=== PATIENT | female | born 2000 | race American Indian/Alaskan Native ===

== ENCOUNTER → 2022-01-29 16:20 | Outpatient (CLI) | payer OTHER, SELFPAY ==
[2022-01-29 17:12] LABS: Appearance Urine UA CLEAR; Bilirubin Urine UA NEGATIVE (NEGATIVE); Color Urine UA YELLOW; Glucose Urine UA NEGATIVE (Negative); Ketones Urine UA NEGATIVE (NEGATIVE); Leukocyte Esterase Urine UA 1+ (NEGATIVE); Nitrite Urine UA NEGATIVE (Negative); Occult Blood Urine UA 2+ (Negative); Protein Urine UA NEGATIVE (Negative); Specific Gravity Urine UA <=1.005 (1.000-1.035); Urobilinogen Urine UA 0.2 E.U./dL (0.2)
[2022-01-29 17:21] LABS: pH Urine UA 6.5 (4.5-8.0)
[2022-01-29 17:39] LABS: Bacteria Urine Few (2-10); Culture Indicated Urine Specimen Cultured; RBC Urine 0-1/HPF (0-5/HPF); Squamous Epithelial Cell Urine 1-5 /HPF (0-5/HPF); Transitional Epi Cells Urine 0-1/HPF (0-5/HPF); WBC Urine 10-30/HPF (0-5/HPF)
== END ==
PROVIDERS: Referring Provider Obstetrics & Gynecology; Visit Provider Obstetrics & Gynecology
DX: Z34.01 Encounter for supervision of normal first pregnancy, first trimester (principal); N39.0 Urinary tract infection, site not specified
CPT/HCPCS: 81003; 81015; 87077; 87086

== ENCOUNTER → 2022-02-11 09:05 | Outpatient (CLI) | payer OTHER, SELFPAY ==
[2022-02-11 13:18] LABS: Urine N gonorrhoeae NOT DETECTED
[2022-02-11 13:49] LABS: Urine Chlamydia NOT DETECTED
== END ==
PROVIDERS: Visit Provider Obstetrics & Gynecology
DX: Z34.01 Encounter for supervision of normal first pregnancy, first trimester (principal); Z3A.12 12 weeks gestation of pregnancy
CPT/HCPCS: 87491; 87591

== ENCOUNTER → 2022-03-12 13:22 | Outpatient (CLI) | payer OTHER, SELFPAY | PROVIDERS: Visit Provider Obstetrics & Gynecology | DX: Z34.02 Encounter for supervision of normal first pregnancy, second trimester (principal); Z3A.17 17 weeks gestation of pregnancy | CPT/HCPCS: 87086 ==

== ENCOUNTER → 2022-03-12 15:14 | Outpatient (CLI) | payer OTHER, SELFPAY ==
[2022-03-12 15:57] LABS: Add Manual Diff / Slide Review NO; Basophils Absolute Auto 0 /uL (0-100); Basophils Percent Auto 0.5 % (0-2); Eosinophils Absolute Auto 500 /uL (0-450); Eosinophils Percent Auto 5.7 % (2-4); Hematocrit 32.8 % (36-46); Hemoglobin 11.4 g/dL (12.0-16.0); Lymphocytes Absolute Auto 2000 /uL (1100-4500); Lymphocytes Percent Auto 22.9 % (25-40); Mean Corpuscular HGB Conc 34.8 % (30-36); Mean Corpuscular Hemoglobin 30.6 PG (26-34); Mean Corpuscular Volume 87.9 fL (80-100); Monocytes Absolute Auto 600 /uL (0-900); Monocytes Percent Auto 6.5 % (3-14); Neutrophils Absolute Auto 5500 /uL (1500-7000); Neutrophils Percent Auto 64.4 % (50-75); Platelet Count 157 X10^3/uL (150-400); Red Blood Cell Count 3.73 X10^6/uL (4.0-5.2); Red Cell Distribution Width 13.6 % (11.6-14.8); White Blood Cell Count 8.6 X10^3/uL (4.5-11.0)
[2022-03-14 10:40] LABS: HIV 1 & 2 Ab/Ag 4th Gen Combo NEGATIVE (NEGATIVE); Hep C Virus Ab w/Reflex Quant NEGATIVE s/c (NEGATIVE); Hepatitis B Surface Antigen NEGATIVE s/c (NEGATIVE); Rubella Antibody IgG 8.4 IU/mL (>15)
[2022-03-14 11:47] LABS: Varicella IgG Antibody 253 index (Immune >165)
[2022-03-16 08:22] LABS: RPR Screen Non Reactive (Non Reactive)
[2022-03-16 23:27] LABS: AFP, Serum 48.2 ng/mL (.); Estriol, Free 1.04 ng/mL (.); Inhibin A, Dimeric 121.35 pg/mL (.); Inhibin A, MoM 0.67 (.); Maternal Ethnicity Other (.); Maternal Weight 119 lbs (.); Number of Fetuses No (.); OSBR Risk 1 IN 10000 (.); Results Report (.); Test Results *Screen Negative* (.); hCG, MoM 0.56 (.); hCG, Serum 21878 mIU/mL (.)
== END ==
PROVIDERS: Obstetrics & Gynecology; Referring Provider Obstetrics & Gynecology; Visit Provider Obstetrics & Gynecology
DX: Z34.01 Encounter for supervision of normal first pregnancy, first trimester (principal); Z34.02 Encounter for supervision of normal first pregnancy, second trimester; Z3A.17 17 weeks gestation of pregnancy
CPT/HCPCS: 36415; 80055; 82105; 82677; 84702; 86336; 86787; 86803; 86850; 86900; 86901; 87086; 87389

== ENCOUNTER → 2022-04-06 07:04 | Outpatient (CLI) | payer OTHER, SELFPAY ==
--- NOTE | 2022-04-06 07:06 | DI.US.S_ITS ---
PROCEDURE: US OB >= 14 WEEKS FETUS INDICATIONS: ANATOMY OUTSIDE/PRIOR DATING DATA: Last menstrual period (LMP): 10/22/2021 LMP-based estimated date of delivery (MARGRET): 07/29/2022. First dating scan (date and location): 01/13/2022 Estimated date of delivery (MARGRET) from first dating scan: 08/22/2022 The calculations are made using the study generated MARGRET of 08/22/2022. TECHNIQUE: Real-time scanning was performed of the fetus, with image documentation and biometric measurements. Endovaginal scanning: Not indicated COMPARISON: [facility], , OB <= 14 WEEKS FETUS, 02/11/2022, 9:26. FINDINGS: General: A single living intrauterine gestation is present. Presentation: Variable Placenta: Placental position is right posterior, without previa. Amniotic fluid index: 19.8 cm, normal range is 5-24 cm. Single deepest vertical pocket is 5.5 cm. heart rate: 152 beats per minute. Maternal cervical canal: 3.1 cm long. Normal lower limit is 2.5 cm. biometrics: Biparietal diameter: 4.8 cm, 20 weeks, 3 days. Head circumference: 17.0 cm, 19 weeks, 4 days. Abdominal circumference: 15.7 cm, 20 weeks, 3 days. Femur length: 3.1 cm, 19 weeks, 5 days. Clinically estimated gestational age: 20 weeks, 2 days Composite gestational age from present scan: 20 weeks, 0 day. Estimated weight and percentile: 330 g, 33%. Anatomic survey: Neuro: Ventricles are non-dilated at less than 10 mm. Cisterna magna is normal at 3-11 mm. Cerebellum is normal in size and morphology. Nuchal skin fold: Normal at less than 6 mm between 14-21 weeks gestational age. Face: Nose and lips, facial profile are normal. Spine: No evidence for spina bifida. Heart: 4-chambered heart is present, with normal ventricular outflow tracts. Diaphragm: Diaphragm is intact. Stomach: Left-sided stomach is present. Kidneys: No hydronephrosis. Normal is less than 5 mm in 2nd trimester, less than 7 mm in 3rd trimester. Cord: 3-vessel cord is seen. Cord insertion is approximately 1.3 cm from placental edge. Bladder: Normal in size. Extremities: All 4 extremities identified. IMPRESSION: 1. Single live intrauterine gestation with fetus I in variable presentation . heart rate is 152 beats per minute. Normal amount of amniotic fluid. Normal growth. Estimated weight is at 33%. 2. Marginal cord insertion as above. Sonographic follow-up is recommended. 3. Rest of the anatomic survey is within normal limits. We strive to produce accurate, complete, and clear reports of imaging services. To assist us in improving patient care, this report was composed using standard report templates and voice recognition software. Therefore, it may contain abnormal punctuation, insertions and/or omissions. Occasional wrong-word or sound-alike substitutions may occur. Though we review the report and make efforts to correct it, we do recommend that the report be read carefully in proper context to recognize any text inaccuracies. Dictated by: Danilo Aguilar M.D. on 04/06/2022 at 13:17 Approved by: Danilo Aguilar M.D. on 04/06/2022 at 13:20
== END ==
PROVIDERS: Referring Provider Obstetrics & Gynecology; Visit Provider Obstetrics & Gynecology
DX: Z34.02 Encounter for supervision of normal first pregnancy, second trimester (principal); Z3A.20 20 weeks gestation of pregnancy
CPT/HCPCS: 76811

== ENCOUNTER → 2022-05-18 14:08 | Outpatient (CLI) | payer OTHER, SELFPAY ==
[2022-05-18 16:55] LABS: Hematocrit 33.8 % (36-46); Hemoglobin 11.6 g/dL (12.0-16.0)
[2022-05-18 17:25] LABS: GTT (PREG) 1 Hour PP 50gm Dose 93 mg/dL (76-139)
== END ==
PROVIDERS: Referring Provider Obstetrics & Gynecology; Visit Provider Obstetrics & Gynecology
DX: Z34.02 Encounter for supervision of normal first pregnancy, second trimester (principal); Z3A.26 26 weeks gestation of pregnancy
CPT/HCPCS: 82950; 85014; 85018

== ENCOUNTER → 2022-07-27 14:24 | Outpatient (CLI) | payer OTHER, MEDICAID, SELFPAY ==
[2022-07-28 14:40] LABS: Strep Grp B PCR NEG for Grp B Strep
== END ==
PROVIDERS: Visit Provider Obstetrics & Gynecology
DX: Z34.03 Encounter for supervision of normal first pregnancy, third trimester (principal); Z3A.36 36 weeks gestation of pregnancy
CPT/HCPCS: 87653

== ENCOUNTER → 2022-07-28 17:10 | Outpatient (CLI) | payer OTHER, MEDICAID, SELFPAY ==
--- NOTE | 2022-07-28 17:11 | DI.US.S_ITS ---
PROCEDURE: US OB FOLLOW UP INDICATIONS: Marginal cord inserted noted previously; please re-evaluate OUTSIDE/PRIOR DATING DATA: Last menstrual period (LMP): 10/22/2021. LMP-based estimated date of delivery (MARGRET): 07/29/2022. First dating scan (date and location): 01/13/2022. Estimated date of delivery (MARGRET) from first dating scan: 08/22/2022. TECHNIQUE: Real-time scanning was performed of the fetus, with image documentation. Endovaginal scanning: Not performed COMPARISON: [facility], OB >= 14 WEEKS FETUS, 04/06/2022, 7:13. FINDINGS: A single living intrauterine gestation is present. Presentation: Cephalic. Placenta: Placental position is posterior, without previa. Amniotic fluid index: 20.4 cm, normal range is 5-24 cm. Single deepest vertical pocket is 5.6 cm. heart rate: 136 beats per minute. Maternal cervical canal: 3.4 cm long. Normal lower limit is 2.5 cm. estimated gestational age: 36 weeks 3 days Central placental cord origin, 3.9 cm from the placental edge. Small unilateral hydrocele and trace contralateral hydrocele. IMPRESSION: 1. Single living intrauterine in cephalic presentation. 2. Central placental cord origin. 3. Small unilateral hydrocele and trace contralateral hydrocele. Dictated by: Orlin Noyola M.D. on 07/30/2022 at 12:26 Approved by: Orlin Noyola M.D. on 07/30/2022 at 12:46
== END ==
PROVIDERS: Referring Provider Obstetrics & Gynecology; Visit Provider Obstetrics & Gynecology
DX: O43.193 Other malformation of placenta, third trimester (principal); Z36.2 Encounter for other antenatal screening follow-up; O99.891 Other specified diseases and conditions complicating pregnancy; N94.89 Other specified conditions associated with female genital organs and menstrual cycle; Z3A.36 36 weeks gestation of pregnancy
CPT/HCPCS: 76816

== ENCOUNTER → 2022-08-11 12:02 | Outpatient (CLI) | payer OTHER, MEDICAID, SELFPAY | PROVIDERS: Visit Provider Obstetrics & Gynecology | DX: Z34.03 Encounter for supervision of normal first pregnancy, third trimester (principal); Z3A.38 38 weeks gestation of pregnancy | CPT/HCPCS: 87086 ==

== ENCOUNTER 2022-08-24 11:18 | Outpatient (CLI) | payer OTHER, MEDICAID, SELFPAY ==
--- NOTE | 2022-08-24 13:05 | P.TNLD_ITS ---
Visit Information Visit Information Date of evaluation: 08/24/22 Primary OB Provider: Ad Luo Reason for Evaluation: Yes non-stress test Comments/Additional reasons for admission: 21 yo at 40+4 weeks EGA presenting for NST/LUISANA due to EGA. Vital Signs Vital Signs: BP: 123/74 P: 79 T: 36.9C PFSH Medical History (Updated 08/17/22 @ 11:08 by Ad Luo MD) H pylori ulcer Inguinal hernia bilateral, non-recurrent Surgical History (Updated 02/10/22 @ 21:17 by Maris Moore) Anesthesia History of inguinal hernia repair, bilateral [place] teeth extracted Family History (Updated 02/10/22 @ 21:19 by Maris Moore) Grandfather Diabetes mellitus Grandmother Diabetes mellitus Father Hypertension Heart disease Grandmother Leukemia Breast cancer Melanoma Mother Melanoma Cancer Social History marital status: unmarried,living together household members: significant other and friend(s) lives independently: Yes 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 ) current occupational exposures/hazards: No special paz needs: No travel history: over 6 months ago seatbelt use: always helmet use: Yes water heater temp set < 120 deg: Yes (will check and adjust as needed ) working smoke detector in home: Yes fire extinguisher in home: Yes carbon monox detector in home: Yes firearms in home: No do you feel safe at home: Yes Smoking Status: Former smoker (Quit vaping 11/2021) second hand exposure: No alcohol intake: former substance use type: does not use during the past year weight has: remained stable well-balanced diet: daily or most days daily servings fruits/ve-4 caffeine: Yes Type(s) of exercise: walking, regular exercise and weight lifting Review of Systems Review of Systems Narrative: Problem-specific ROS positives included in HPI Evaluation Evaluation Baseline heart rate: 140 Variability: Moderate (11-25) monitor accelerations: Present Monitor Decelerations: Absent Category of Tracing: Reactive Comments: Bedside US: LUISANA 10.01 cm Deepest pocket 5.7 cm Diagnosis, Plan/Disposition Final Diagnosis (1) : Status: Acute (2) Rubella non-immune status, antepartum: Status: Acute Plan/Disposition Plan: Admit for cervical ripening 08/31/2022, induction 09/01/2022. Labor precautions, kick counts. OB Disposition: home
== END 2022-08-24 12:44 | disposition home or self-care (01) ==
LOC: LABOR 12:36 → OB 08-26 13:48
PROVIDERS: Referring Provider Obstetrics & Gynecology; Visit Provider Obstetrics & Gynecology
DX: O48.0 Post-term pregnancy (principal); Z3A.40 40 weeks gestation of pregnancy; Z28.39 Other underimmunization status
CPT/HCPCS: 59025; 76815; G0378; G0379

== ENCOUNTER 2022-08-31 19:02 | Inpatient (IN) | payer OTHER, MEDICAID, SELFPAY ==
--- NOTE | 2022-08-31 19:39 | P.HPOB_ITS ---
OB HPI Date/Time Date of admission: 08/31/22 Date Patient Seen: 09/01/22 Time Patient Seen: 07:00 History of Present Condition Chief complaint: IUP, 41+4 wks EGA : 1 Para: 0 Estimated Date of Delivery: 08/20/22 Estimated Gestational Age (weeks): 41+4 Narrative: Edil Talbot is a 21 year old G1 at 41+4 wks EGA admitted for ripening/induction due to post-dates EGA. PNC has been uneventful, dating is firm, and milestones have been appropriate throughout her . GBS is negative. Indications Indication for induction OB: post dates History of Present care: good care Dating criteria: LMP confirmed by 1st trimester US Ultrasounds: normal 1st trimester US and normal mid trimester US Obstetrical complications: none Preadmission Labs Blood type: B (+) positive -: Antibody screen: negative, GBS status: negative, HBsAG: negative, HIV: negative and RPR/VDLR: negative -: Chlamydia screen: not detected and Gonorrhea screen: not detected -: Rubella: not immune and Varicella: immune HCT: 33.8 HCAB: negative PAP: Normal Quad screen: Normal 1 hr GTT: 93 Prior (ies) History: G1 Evaluation Evaluation Baseline heart rate: 130 Variability: Moderate (11-25) monitor accelerations: Present Monitor Decelerations: Absent Contraction Frequency (minutes): 5 Uterine Contraction Intensity: Mild Category of Tracing: Reactive Status: Category l Dilation (cm): 2 Effacement (%): 85 Dilation: 1-2 cm Effacement: >/=80% station: 0 Position of cervix: posterior Consistency: soft Gandara score: 8 [facility] Medical History (Updated 08/17/22 @ 11:08 by Ad Luo MD) H pylori ulcer Inguinal hernia bilateral, non-recurrent Surgical History (Updated 02/10/22 @ 21:17 by Maris Moore) Anesthesia History of inguinal hernia repair, bilateral [place] teeth extracted Family History (Updated 02/10/22 @ 21:19 by Maris Moore) Grandfather Diabetes mellitus Grandmother Diabetes mellitus Father Hypertension Heart disease Grandmother Leukemia Breast cancer Melanoma Mother Melanoma Cancer Social History marital status: unmarried,living together household members: significant other and friend(s) lives independently: Yes housing: condominium (townhouse ) pets and animals: Yes (3 dogs, 1 cat, 2 chinchillas, not managing cat or lea waste) education level: high school 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, 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 ) current occupational exposures/hazards: No special paz needs: No travel history: over 6 months ago seatbelt use: always helmet use: Yes water heater temp set < 120 deg: Yes (will check and adjust as needed ) working smoke detector in home: Yes fire extinguisher in home: Yes carbon monox detector in home: Yes firearms in home: No do you feel safe at home: Yes Smoking Status: Former smoker second hand exposure: No alcohol intake: former substance use type: does not use during the past year weight has: remained stable well-balanced diet: daily or most days daily servings fruits/ve-4 caffeine: Yes Type(s) of exercise: walking, regular exercise and weight lifting Meds Home Medications and Allergies Home Medications Medication Instructions Recorded Confirmed Type prenat.vits,ramon,nsm-zacz-krxet 1 tab PO DAILY 12/24/21 08/31/22 History Allergies Allergy/AdvReac Type Severity Reaction Status Date / Time Egg Derived Allergy Mild ITCHING Verified 08/31/22 23:57 OB Exam Vital signs Blood Pressure: 135/87 Pulse Rate: 77 Temperature: 36.3 F HENMT Head: normocephalic Eyes General: appearance normal, both eyes and all related structures Resp Effort & Inspection: normal respiratory effort and able to speak in complete s entences Auscultation: clear to auscultation bilaterally Cardio Rate: regular rate Rhythm: regular rhythm Heart Sounds: S1 normal, S2 normal and no murmurs Extremities Lower extremity: Yes normal to inspection GI Inspection: normal to inspection Palpation: Yes soft and Yes no hepatosplenomegaly Uterus Location (Fundal Height): 38 Presentation: vertex Estimated Weight (lbs): 8 Objective Labs 09/01/22 02:00 Assessment and Plan Assessment and Plan Assessment and Plan narrative: ASSESSMENT 1. Intrauterine , 41+5 wks EGA 2. GBS negative status PLAN 1. Admit for cervical ripening/induction due to post-dates 2. See admission orders
[2022-08-31] MEDS: miSOPROStoL 100 MCG TABLET 50 MCG PO (20:05)
[2022-09-01 00:06] VITALS: BP 133/73
[2022-09-01] MEDS: miSOPROStoL 100 MCG TABLET 50 MCG PO (02:10)
[2022-09-01 02:33] LABS: Add Manual Diff / Slide Review NO; Basophils Absolute Auto 100 /uL (0-100); Basophils Percent Auto 0.7 % (0-2); Eosinophils Absolute Auto 400 /uL (0-450); Eosinophils Percent Auto 4.1 % (2-4); Hematocrit 33.8 % (36-46); Hemoglobin 11.3 g/dL (12.0-16.0); Lymphocytes Absolute Auto 2100 /uL (1100-4500); Lymphocytes Percent Auto 21.9 % (25-40); Mean Corpuscular HGB Conc 33.4 % (30-36); Mean Corpuscular Hemoglobin 28.8 PG (26-34); Mean Corpuscular Volume 86.1 fL (80-100); Monocytes Absolute Auto 600 /uL (0-900); Monocytes Percent Auto 6.5 % (3-14); Neutrophils Absolute Auto 6300 /uL (1500-7000); Neutrophils Percent Auto 66.8 % (50-75); Platelet Count 120 X10^3/uL (150-400); Red Blood Cell Count 3.93 X10^6/uL (4.0-5.2); Red Cell Distribution Width 13.9 % (11.6-14.8); White Blood Cell Count 9.4 X10^3/uL (4.5-11.0)
[2022-09-01 06:41] VITALS: BP 135/87; PULSE 77; TEMP 2.4; TEMP 36.3
--- NOTE | 2022-09-01 07:46 | PM.OBPNLAB ---
Date/Time Date Patient Seen: 09/01/22 Time Patient Seen: 07:46 Pain Control Pain control: tolerating well Pelvic Exam Dilation (cm): 2 Effacement (%): 85 station: 0 Amniotic membrane status: Intact Contractions Contractions on admission: none Monitor mode: External Contraction pattern: Irregular Contraction phase: Resting Contraction intensity: Mild Status status: Category l Heart Rate Baseline: 130 Monitor Accelerations: Present Monitor Decelerations: Absent Monitor Variability: Moderate Assessment and Plan Assessment: other Plan: begin patient augmentation
[2022-09-01] MEDS: OXYTOCIN PREMIX 30 UNIT/500 ML PLAST..BAG IV (08:38)
[2022-09-01] MEDS: LACTATED RINGERS 1,000 ML 100 ML IV ×2 (08:39→14:34)
[2022-09-01] MEDS: FENT 2MCG/ML BUPIV 0.125% EPI 200 MCG/100 ML PLAST..BAG 7.5 MCG EPIDURAL ×2 (12:09→18:40)
--- NOTE | 2022-09-01 17:32 | PM.OBPNLAB ---
Date/Time Date Patient Seen: 09/01/22 Time Patient Seen: 17:32 Pain Control Pain control: tolerating well and epidural Pelvic Exam Dilation (cm): 7 Effacement (%): 100 station: 0 Amniotic membrane status: Intact Contractions Monitor mode: External Pitocin rate (mU/min): 10 Contraction frequency (min): 2 Contraction duration (min): 1 Contraction pattern: Regular Contraction phase: Resting Contraction intensity: Mild Status status: Category l Heart Rate Baseline: 135 Monitor Accelerations: Present Monitor Decelerations: Early Monitor Variability: Moderate Assessment and Plan Assessment: active labor Plan: continuous present management Comments: Anticipate
--- NOTE | 2022-09-01 19:17 | PM.OBPNLAB ---
Date/Time Date Patient Seen: 09/01/22 Time Patient Seen: 19:17 Pain Control Pain control: tolerating well and epidural Pelvic Exam Dilation (cm): 10 Effacement (%): 100 station: +1 Amniotic membrane status: Ruptured Contractions Contractions on admission: none Monitor mode: External Pitocin rate (mU/min): 10 Contraction frequency (min): 2 Contraction duration (min): 1 Contraction pattern: Regular Contraction phase: Resting Contraction intensity: Mild Status status: Category l Heart Rate Baseline: 135 Monitor Accelerations: Present Monitor Decelerations: Early Monitor Variability: Moderate Assessment and Plan Assessment: induction ongoing Plan: continuous present management Comments: Anticipate
--- NOTE | 2022-09-01 23:00 | P.PCNOB_ITS ---
Events: Other (Post-dates) Labor & Delivery Delivery date: 09/01/22 Intrapartal Events: None and Prolonged 2nd Stage > 2.5 hours Cervical ripening method: per misoprostal protocol Induction method: per pitocin protocol Delivery augmentation: pitocin Delivery monitor: external FHT and external uterine Route of delivery: vacuum extraction Indication for instrumentation: maternal exhaustion Episiotomy description: None L&D Laceration Description: Perineal - 2nd Degree Delivery repair: chromic Estimated blood loss (mL): 200 Anesthesia Type: Epidural and Local Complications: None Narrative: During the course of a prolonged 2nd stage (3 hr. 31 minute) due to persistent left occiput posterior position the patient was able to bring the vertex down to +2 station but could not advance the vertex further in the presence of deep early/variable decelerations. After evaluation of the position and the cl inical pelvimetry the decision was made to initiate vacuum assisted delivery. A Kiwi OmniCup was applied at +2 station in the left occiput posterior position and with total of 9 pulls without any pop offs, the vertex was delivered to and across the introitus in the persistent left occiput posterior position. Suction pressures never exceeded 550 mmHg, the vertex advanced with each pull, and the s uction was released between contractions. A single loop of cord around the neck was noted but no shoulder dystocia or body dystocia was encountered. Cord was reduced following delivery of the infant and skin to skin contact was initiated immediately. The was vigorous and delayed cord clamping performed. Once the umbilical cord was doubly clamped and cut, a cord blood sample was obtained for routine studies. Placenta was then delivered easily with gentle cord traction and suprapubic countertraction. Inspection of the placenta showed it to be intact with a central cord insertion and 3 vessels in the umbilical cord. Initiation of intravenous Pitocin immediately following delivery of the placenta resulted in prompt control of bleeding. Inspection of the perineum showed a simple second-degree midline perineal laceration which was repaired with 2-0 chromic in the usual manner. Infiltration with 1% lidocaine was required for additional anesthesia for the repair. The delivery process was terminated with baby and mother having tolerated delivery well. Baby 1: Infant gender: Male Presentation: vertex Position: Left Occiput Posterior Placenta delivery description: Spontaneous Cord Vessel Description: 3 Vessels score (1 min): 8 score (5 min): 9 weight: 7 lb 3.169 oz Plan for aftercare: Routine care
[2022-09-01] MEDS: LIDOCAINE 1% 20 ML (23:50)
[2022-09-02] MEDS: OXYCODONE IR 5 MG TABLET PO ×4 (02:08→23:32)
[2022-09-02] MEDS: IBUPROFEN 600 MG TABLET PO ×4 (02:09→23:33)
[2022-09-02] MEDS: ACETAMINOPHEN 325 MG TABLET 650 MG PO ×4 (02:09→23:32)
[2022-09-02 06:04] LABS: Add Manual Diff / Slide Review NO; Basophils Absolute Auto 100 /uL (0-100); Basophils Percent Auto 0.6 % (0-2); Eosinophils Absolute Auto 0 /uL (0-450); Eosinophils Percent Auto 0.2 % (2-4); Hematocrit 30.3 % (36-46); Hemoglobin 10.1 g/dL (12.0-16.0); Lymphocytes Absolute Auto 1500 /uL (1100-4500); Lymphocytes Percent Auto 9.2 % (25-40); Mean Corpuscular HGB Conc 33.4 % (30-36); Mean Corpuscular Hemoglobin 28.5 PG (26-34); Mean Corpuscular Volume 85.1 fL (80-100); Monocytes Absolute Auto 1100 /uL (0-900); Monocytes Percent Auto 6.3 % (3-14); Neutrophils Absolute Auto 14100 /uL (1500-7000); Neutrophils Percent Auto 83.7 % (50-75); Platelet Count 110 X10^3/uL (150-400); Red Blood Cell Count 3.56 X10^6/uL (4.0-5.2); Red Cell Distribution Width 13.8 % (11.6-14.8); White Blood Cell Count 16.8 X10^3/uL (4.5-11.0)
[2022-09-02 07:00] VITALS: BP 120/71; PULSE 79; RESP 16; TEMP 36.6
--- NOTE | 2022-09-02 08:11 | PM.OBPN.1 ---
Subjective - OB Subjective Patient comments: no complaints and pain well controlled baby status: doing well feeding status: exclusively breast feeding Narrative: Mother and baby have done extremely well overnight. Lochia is light. Pain is well-controlled. Minimal scalp bruising noted. Date Patient Seen: 09/02/22 Time Patient Seen: 08:12 Exam Const General: cooperative and comfortable Nutritional Appearance: average body habitus Orientation: alert and oriented x3 HENMT Head: normal to inspection, atraumatic and abrasion Ears: hearing grossly normal bilaterally Face and sinus: face symmetric Eyes General: appearance normal, both eyes and all related structures Conjunctivae: conjunctivae normal Sclera: sclerae normal EOM: EOM intact bilaterally Neck Neck: normal visual inspection Resp Effort & Inspection: normal respiratory effort and able to speak in complete sentences GI Inspection: normal to inspection Palpation: soft, no hepatosplenomegaly and mass (Firm nontender fundus, U -3) External Female Exam: other (No significant bleeding noted, perineum intact) Extrem General: no calf tenderness Psych Appearance: grossly normal Mental Status: mental status grossly normal Speech and Movement: speech and movement normal Mood: congruent mood Affect: normal affect Attitude: cooperative Thought Process: normal Thought Content: normal Judgment: judgment good Objective Labs 09/02/22 05:55 Labs: Laboratory Results - last 24 hr 09/02/22 05:55 WBC 16.8 H D RBC 3.56 L Hgb 10.1 L Hct 30.3 L MCV 85.1 MCH 28.5 MCHC 33.4 RDW 13.8 Plt Count 110 L Neut % (Auto) 83.7 H Lymph % (Auto) 9.2 L [place] % (Auto) 6.3 Eos % (Auto) 0.2 L Baso % (Auto) 0.6 Neut # (Auto) 90151 H Lymph # (Auto) 1500 [place] # (Auto) 1100 H Eos # (Auto) 0 Baso # (Auto) 100 Assessment & Plan Plan day: 1 plan OB: routine care Time Spent With Patient Time: Total time spent is greater than 50% in coordination of care (as documented) at patient's floor/unit and/or counseling patient: Time with patient: 15-24 minutes
[2022-09-02] MEDS: DOCUSATE 100 MG CAPSULE PO (09:31)
--- NOTE | 2022-09-02 18:55 | PC.NURSE ---
1834 patient ambulating in room,no dizziness, denies any pain or discomfort.back to bed.Ice pack to incision site, up to bathroom, scant amt bleeding in urine.
[2022-09-03] MEDS: IBUPROFEN 600 MG TABLET PO ×2 (06:51→12:40)
[2022-09-03] MEDS: ACETAMINOPHEN 325 MG TABLET 650 MG PO ×2 (06:52→12:40)
--- NOTE | 2022-09-03 07:48 | PM.OBDS.1 ---
Discharge Providers Provider Date of admission: 08/31/22 19:02 Discharge Date: 09/03/22 Consults: 08/31/22 19:30 Consult to Anesthesiology Urgent Comment: Consulting Provider: Ad Luo Reason for consultation: Epidural 09/02/22 22:56 Consult to Program Scheduler Routine Comment: Discharge provider: Ad Luo MD Summary Hospital Course Date Patient Seen: 09/03/22 Time Patient Seen: 07:48 Diagnoses: Intrauterine gestation, 41+6 weeks EGA, delivered vaginally by vacuum extraction Chronic anemia Thrombocytopenia Hospital Course: Edil was admitted on the evening of 08/31/2022 for cervical ripening with oral Cytotec. She was initiated on Pitocin induction on the morning of 09/01/2022 and late that evening after a prolonged 2nd stage due to persistent left occiput posterior position, she was delivered vaginally by vacuum assist with her infant a viable male Apgars of 8 and 9 with a weight of 7 lb 3.17 oz. following delivery both mother and baby have done extremely well with the mother experiencing prompt return of bowel and bladder function, she is ambulating independently, tolerating a regular diet, and her pain is well relieved with oral pain medications. She will be discharged at this time to home in an afebrile normotensive condition after counseling regarding precautionary symptoms, limitations of activity, medications, and plans for follow-up. Medications at discharge will include resumption of vitamins daily, oxycodone 5 mg every 6 hours as needed for pain, ibuprofen 600 mg p.o. q.6 hours as needed pain, and norethindrone 0.35 mg daily for contraception. Peripartum Data Infant Delivery Method: Assisted Delivery (Vacuum assisted vaginal ) Laceration Description: Perineal - 2nd Degree Episiotomy description: None Time Spent with Patient Time attestation: Total time spent providing and/or coordinating discharge services: Objective Labs 09/02/22 05:55 Exam Const General: cooperative and comfortable Nutritional Appearance: average body habitus Orientation: alert and oriented x3 HENMT Head: normal to inspection, atraumatic and abrasion Ears: hearing grossly normal bilaterally Face and sinus: face symmetric Eyes General: appearance normal, both eyes and all related structures Conjunctivae: conjunctivae normal Sclera: sclerae normal EOM: EOM intact bilaterally Neck Neck: normal visual inspection Resp Effort & Inspection: normal respiratory effort and able to speak in complete sentences GI Inspection: normal to inspection Palpation: soft and no hepatosplenomegaly External Female Exam: other (No significant bleeding noted, perineum intact) Extrem General: no calf tenderness Psych Appearance: grossly normal Mental Status: mental status grossly normal Speech and Movement: speech and movement normal Mood: congruent mood Affect: normal affect Attitude: cooperative Thought Process: normal Thought Content: normal Judgment: judgment good Discharge Plan Discharge Plan Patient Disposition: Home Provider Discharge Comment: Please review the written instructions you received when you were discharged from the hospital. Your follow-up appointment will be scheduled for 6 weeks after delivery and I look forward to seeing you then. If however in the meanwhile you have any concerns, problems, or questions, please contact either through the office phone at [phone], or via the patient portal. Discharge orders & Medications Prescriptions: New ibuprofen 600 mg Tablet 600 mg PO Q6HR PRN (Reason: Pain, Mild (1-3)) Qty: 30 2RF oxycodone 5 mg Tablet 5 mg PO Q4HR PRN (Reason: Pain, Moderate (4-6)) Qty: 12 0RF norethindrone (contraceptive) 0.35 mg tablet 0.35 mg PO DAILY Qty: 84 4RF Continued prenat.vits,ramon,pie-bmwf-popwc Tablet 1 tab PO DAILY Follow up/Referrals: Ad Luo MD [Physician] - (Appointment with on Friday, October 13 at 9:00 am) Discharge Health Status Multidrug resistant organism: No MDRO Diet/Activity/Treatments Diet: Diet as Tolerated Activity: As tolerated Other treatments: [id number]-vpoxeqz Tylenol may also be used for additional pain relief. Jhkf-vae-pxearon stool softeners and/or MiraLax may be used for constipation. Skin/Wound/Dressing Care Report to your healthcare provider any signs of infection, such as:: chills, fever, increased pain, unusual drainage and unusual redness Dressing: N/A Visit Report/Discharge Packet Instructions: DI for Labor and Delivery, Vaginal , DI for and Nipple Soreness, DI for Prescription Opioid Use Stand Alone Forms: Discharge: Care
[2022-09-03] MEDS: DOCUSATE 100 MG CAPSULE PO (09:26)
== END 2022-09-03 12:50 | disposition home or self-care (01) | DRG 560 ==
PROVIDERS: Admitting Provider Obstetrics & Gynecology; Referring Provider Obstetrics & Gynecology; Visit Provider Obstetrics & Gynecology
DX: O48.0 Post-term pregnancy (principal); O64.0XX0 Obstructed labor due to incomplete rotation of fetal head, not applicable or unspecified; O63.1 Prolonged second stage (of labor); Z3A.41 41 weeks gestation of pregnancy; Z37.0 Single live birth; O75.81 Maternal exhaustion complicating labor and delivery; O70.1 Second degree perineal laceration during delivery; O76 Abnormality in fetal heart rate and rhythm complicating labor and delivery; O72.3 Postpartum coagulation defects; O99.02 Anemia complicating childbirth; D64.89 Other specified anemias
CPT/HCPCS: 36415; 59025; 59050; 59200; 59409; 76815; 84112; 85025; 86850; 86900; 86901; G0378; G0379; J2590